=== PATIENT | female | born 1930 | race Caucasian/White ===

== ENCOUNTER → 2016-07-07 | Day surgery (SDC) | payer MEDICARE, MEDICAID ==
[2016-07-07] VITALS (8 sets, daily range): BP systolic 144–156; BP diastolic 74–104
[~2016-07-07] VITALS: Ht 162.6 cm; Wt 50.8 kg
[~2016-07-07] MED LIST: ASPIR-LOW81 MG PO; Akten 3.5% 1ml Btl ONE; BSS 15ml BTL ONE; BSS 500ml btl ONE; CARDIZEM CD180 MG ORAL; CARDIZEM120 MG PO; CARDIZEM30 MG PO; CIPRO250 MG ORAL; CRESTOR10 M1 PO; CYMBALTA30 MG ORAL; Carbachol 0.01% Op Soln 1.5ml vial ONE; DITROPAN XL5 MG ORAL; DOCUSATE SODIU250 MG ORAL; Dexamethasone 4mg/ml vial ONE; Diclofenac Sod 0.1% Op Soln ONE; DiphenhydrAMINE 50mg/ml Inj IVP PRN; DiphenhydrAMINE 50mg/ml Inj ONE; ELIQUIS2.5 MG PO; EPINEPHrine 1mg/1ml Amp ONE; FERROUS SULFAT325 MG ORAL; FUROSEMIDE20 M1 ORAL; GABAPENTIN300 MG PO; GABAPENTIN400 MG ORAL; Gatifloxacin Opth Solution 0.5% ONE; IBUPROFEN200 M2 PO; LR 1000ml 1,000 ML IVLG SCH; Labetalol 5mg/ml 20ml vial IV PRN; Lidocaine 1% MPF 10mg/ml 5ml ONE; METOPROLOL SUC100 MG ORAL; MULTIVITAMINS1 EAC8 ORAL; NEURONTIN400 MG ORAL; NORCO 10/3251 EA ORAL; NORCO 5-325 TA1 EACH ORAL; PLAVIX75 MG PO; PRADAXA150 MG PO; PREDNISONE10 MG PO; PREDNISONE5 MG ORAL; PREDNISONE5 MG RIGHT EYE; PRILOSEC20 MG PO; Phenylephrine 2.5% Op Soln ONE; Povidone-Iodine 5% opth solution ONE; SPIRIVA INHALE1 PUF1 INH; Sodium Hyaluronate 14 mg/ml 0.85ml ONE; Sterile Water Irrig 1000ml IRRIG ONE; TENORMIN25 MG ORAL; TOPROL XL100 MG ORAL; TOPROL XL25 MG ORAL; TYLENOL PO; Tobradex Opth Susp 2.5ml ONE; Tropicamide 1% Opth Soln ONE; advair INH
[2016-07-07] MEDS: Diclofenac Sod 0.1% Op Soln LEFT EYE SCH ×3 (06:33→06:53)
[2016-07-07] MEDS: Tobradex Opth Susp 2.5ml LEFT EYE SCH ×3 (06:34→06:53)
[2016-07-07] MEDS: Akten 3.5% 1ml Btl LEFT EYE SCH ×3 (06:34→06:53)
[2016-07-07] MEDS: Tropicamide 1% Opth Soln LEFT EYE SCH ×3 (06:34→06:53)
[2016-07-07] MEDS: Phenylephrine 2.5% Op Soln LEFT EYE SCH ×3 (06:34→06:53)
[2016-07-07] MEDS: Gatifloxacin Opth Solution 0.5% LEFT EYE SCH ×3 (06:35→06:54)
--- NOTE | 2016-07-07 07:32 | Anethesia Preoperative Eval ---
Anesthesia Pre-op PMH/ROS General Date of Evaluation: Jul 07, 2016 Anesthesiologist: Viet ASA Score: ASA 3 Mallampati Score Class I : Soft palate, uvula, fauces, pillars visible Class II: Soft palate, uvula, fauces visible Class III: Soft palate, base of uvula visible Class IV: Only hard plate visible Mallampati Classification: Class II Surgeon: Gibran Diagnosis: Left cataract Surgical Procedure: Left cataract extraction with IOL Anesthesia History: none Social History: smoking Family History: no anesthesia problems Allergies: Coded Allergies: SELENA INHIBITORS (Unverified Allergy, 07/30/13) per [facility] summary OLMESARTAN (Unverified Allergy, 07/30/13) per [facility] summary TRAMADOL (Unverified Allergy, 07/30/13) per [facility] summary CODEINE (Verified Adverse Reaction, Mild, NAUSEA, 06/26/13) PER RN (GABO) PT GETS NAUSEA AND STATED SHE MAY HAVE TRIED IT PRIOR ON AN EMPTY STOMACH. IS WILLING TO TRY NORCO Medications: see eMAR Past Medical History Cardiovascular: Reports: CAD, HTN, arrhythmia - afib, other - carotid stenosis , Denies: [place], valve dz Pulmonary: Reports: COPD, Denies: KAMILA, asthma, other Gastrointestinal/Genitourinary: Reports: GERD, Denies: CRI, ESRD, other Neurologic/Psychiatric: Reports: depression/anxiety, Denies: CVA, TIA, dementia, other Endocrine: Denies: DM, hypothyroidism, other, steroids HEENT: Denies: ALUTIIQ (L), ALUTIIQ (R), cataract (L), cataract (R), glaucoma, other Hematology/Immune: Denies: DVT, anemia, bleeding disorder, other Musculoskeletal/Integumentary: Reports: OA, Denies: DDD, DJD, RA, edema, other PSxH Narrative: t&A, right cataract, appy, lithotripsy, l arm sx, r ankle sx, r TKR Anesthesia Pre-op Phys. Exam Physician Exam Last Vital Signs Date Time Temp Pulse Resp B/P Pulse Ox O2 Delivery O2 Flow Rate FiO2 07/07/16 06:44 96.9 124 18 144/87 97 Room Air Constitutional: NAD Cardiovascular: RRR Respiratory: CTA Airway Exam Mallampati Score: Class II MO: full Anesthesia Pre-op A/P Labs see chart Studies Pre-op Studies: EKG - sr Risk Assessment & Plan Assessment: ASA III Plan: MAC Status Change Before Surgery: No Pre-Antibiotics Drug: N/A CLINT WRAY M.D. Jul 07, 2016 07:32
--- NOTE | 2016-07-07 07:34 | Immediate Post-Op Evaluation ---
Immediate Post-Op Evalulation Immediate Post-Op Evalulation Procedure: Left cataract extraction with IOL Date of Evaluation: Jul 07, 2016 Time of Evaluation: 08:14 IV Fluids: 150 Blood Products: 0 Estimated Blood Loss: 0 Urinary Output: 0 Blood Pressure Systolic: 156 Blood Pressure Diastolic: 87 Pulse Rate: 97 Respiratory Rate: 17 O2 Sat by Pulse Oximetry: 100 Temperature (Fahrenheit): 99.1 Pain Score (1-10): 0 Nausea: No Vomiting: No Complications 0 Patient Status: awake, reacts, patent, none Hydration Status: adequate Drug: N/A CLINT WRAY M.D. Jul 07, 2016 07:34
--- NOTE | 2016-07-07 07:34 | 48 Hour Post Anesthesia Eval ---
Post Anesthesia Evaluation Procedure: Left cataract extraction with IOL Date of Evaluation: Jul 07, 2016 Blood Pressure Systolic: 167 0: 92 Pulse Rate: 111 Respiratory Rate: 16 O2 Sat by Pulse Oximetry: 99 Airway: patent Nausea: No Vomiting: No Pain Intensity: 0 Hydration Status: adequate Cardiopulmonary Status: at baseline Mental Status/LOC: patient returned to baseline Post-Anesthesia Complications: 0 Follow-up care needed: ready to discharge CLINT WRAY M.D. Jul 07, 2016 07:34
--- NOTE | 2016-07-07 07:39 | Pre-Procedure Note/Attestation ---
Pre-Procedure Note/Attestation Complete Prior to Procedure Planned Procedure: left Procedure Narrative: cataract extraction with implant left eye Indications for Procedure Pre-Operative Diagnosis: cataract left eye Attestation I attest that I discussed the nature of the procedure; its benefits; risks and complications; and alternatives (and the risks and benefits of such alternatives ), prior to the procedure, with the patient (or the patient's legal sales development representative). I attest that, if there was a reasonable possibility of needing a blood transfusion, the patient (or the patient's legal sales development representative) was given the [facility] standardized written summary, pursuant to the [place] Blood Safety Act ([place] [facility] and Safety Code # 1645, as amended). I attest that I re-evaluated the patient just prior to the surgery and that there has been no change in the patient's H&P, except as documented below: FABIÁN DUMONT Jul 07, 2016 07:39
--- NOTE | 2016-07-07 08:13 | Brief Operative Note ---
Immediate Post Operative Note Operative Note Pre-op Diagnosis: cataract left eye Procedure: phacoemulsification of cataract with implant left eye Post-op Diagnosis: same as pre-op Surgeon: fabián escoto Receptionist Nurse: none Anesthesiologist: praveen lew Anesthesia: MAC Specimen: none Complications: none Condition: stable Estimated Blood Loss: none Drains: none Implant(s) used?: Yes FABIÁN ESCOTO Jul 07, 2016 08:13
--- NOTE | 2016-07-07 09:28 | Operative Note - Dictated ---
DATE OF OPERATION: 07/07/2016 PREOPERATIVE DIAGNOSIS: Cataract, left eye. POSTOPERATIVE DIAGNOSIS: Cataract, left eye. PROCEDURE: Phacoemulsification cataract left eye with placement of posterior chamber intraocular lens. SURGEON: Sergey Leary M.D. PROVIDER NETWORK MGR: None. ANESTHESIA: MAC/topical. ANESTHESIOLOGIST: Dr. Kiah Shaw. INDICATION FOR PROCEDURE: Poor vision left eye. DESCRIPTION OF FINDINGS: Nuclear sclerotic cataract and posterior subcapsular cataract, left eye. DESCRIPTION OF PROCEDURE: The patient received a topical anesthetic block consisting of 3.5% Akten eye drops. The eye was then prepped and draped in usual manner. A lid speculum was placed. An operating Zeiss microscope was positioned. The temporal corneal groove was made with the neo blade. A SuperSharp blade made a stab incision at the 6 o'clock position. A 0.1 mL of 1% nonpreserved intracameral lidocaine was injected. Healon was instilled into the anterior chamber and 2.5/2.8 mm trapezoidal neo blade was used to complete the temporal corneal wound. A cystotome was used to create an anterior capsular flap. Utrata forceps were used to complete the capsulorrhexis. BSS on a cannula was used to hydrodissect the nucleus. The lens nucleus was phacoemulsified in a phaco-fracture technique. Remaining cortical material was removed with the I/A and the posterior capsule polished with the I/A on Cap vac. Healon was reinstilled into the capsular bag and anterior chamber, and an Almazan foldable one-piece posterior chamber intraocular lens, model ZCB00, power 19.5 diopter, cell number [id number] was placed in the injector. The lens was put into the capsular bag. The I/A tip was used to remove the Healon and position the lens. The wound edge was hydrated with BSS and a blunt-tipped cannula. The wound was checked and found to be watertight. The lid speculum was removed and a drop of TobraDex and Zymaxid was placed. A clear plastic shield was taped over the eye. The patient tolerated the procedure well and left the operating room in good condition. Sergey Leary M.D. ([facility] [place]: Lyndsey JOB#: [id number] CC: Shweta Giraldo M.D. [facility]OS[facility]ITAL[facility]ina
== END | disposition home or self-care (01) ==
LOC: SUR 05:41
DX: H25.12 Age-related nuclear cataract, left eye (principal); H25.042 Posterior subcapsular polar age-related cataract, left eye; H35.30 Unspecified macular degeneration; J43.1 Panlobular emphysema; I12.9 Hypertensive chronic kidney disease with stage 1 through stage 4 chronic kidney disease, or unspecified chronic kidney disease; N18.3 Chronic kidney disease, stage 3 (moderate); I25.10 Atherosclerotic heart disease of native coronary artery without angina pectoris; I50.32 Chronic diastolic (congestive) heart failure; I48.91 Unspecified atrial fibrillation; E78.5 Hyperlipidemia, unspecified; I73.9 Peripheral vascular disease, unspecified; M81.0 Age-related osteoporosis without current pathological fracture; I27.2 Other secondary pulmonary hypertension; I65.21 Occlusion and stenosis of right carotid artery; F32.9 Major depressive disorder, single episode, unspecified; F41.9 Anxiety disorder, unspecified; M19.90 Unspecified osteoarthritis, unspecified site; Z96.651 Presence of right artificial knee joint; Z85.828 Personal history of other malignant neoplasm of skin; Z87.442 Personal history of urinary calculi; Z90.49 Acquired absence of other specified parts of digestive tract; Z88.5 Allergy status to narcotic agent; Z88.8 Allergy status to other drugs, medicaments and biological substances
CPT/HCPCS: 66984; J0171; J1100; J1200; V2632; 94003; 94150